=== PATIENT | male | born 1955 | race Caucasian/White ===

== ENCOUNTER 2017-04-29 22:53 | Inpatient (IN) | payer MEDICAID, OTHER ==
[~2017-04-29] VITALS: Ht 160 cm; Wt 52.3 kg
[2017-04-29] MEDS ORDERED: CITA10TA68 PO (23:06)
[2017-04-29] MEDS ORDERED: SIMV-259 PO (23:06)
[2017-04-29] MEDS ORDERED: ATEN25TA PO (23:06)
[2017-04-29 23:35] LABS: BASOPHILS % (AUTO) 0.9 % (0.0-2.0); EOSINOPHILS % (AUTO) 0.2 % (1.0-6.0); HEMATOCRIT 35.9 % (41-53); HEMOGLOBIN 12.6 g/dL (13.5-17.5); LYMPHOCYTES # (AUTO) 1.7 K/uL (1.0-4.8); LYMPHOCYTES % (AUTO) 27.2 % (22.0-44.0); MEAN CORPUSCULAR HEMOGLOBIN 34.7 pg (26.0-34.0); MEAN CORPUSCULAR HGB CONC 35.1 G/dL (31.0-37.0); MEAN CORPUSCULAR VOLUME 99 fL (80-100); MONOCYTES # (AUTO) 0.4 K/uL (0.1-1.0); MONOCYTES % (AUTO) 5.8 % (2.0-9.0); NEUTROPHILS # (AUTO) 4.1 K/uL (1.8-7.7); NEUTROPHILS % (AUTO) 65.9 % (40.0-70.0); RED BLOOD CELL COUNT(AUTO) 3.64 MIL/uL (4.50-5.90); RED CELL DISTRIBUTION WIDTH 13.1 % (11.5-14.5)
[2017-04-29 23:57] LABS: ALANINE AMINOTRANSFERASE 38 U/L (12-78); ALKALINE PHOSPHATASE 274 U/L (46-116); ANION GAP 13 mmol/L (8-16); ASPARTATE AMINOTRANSFERASE 78 U/L (15-37); BILIRUBIN,TOTAL 0.6 mg/dL (0.1-1.0); CALCIUM, TOTAL 8.6 mg/dL (8.8-10.5); CARBON DIOXIDE 25 mmol/L (22-29); CHLORIDE 102 mmol/L (98-107); CREATININE 0.78 mg/dL (0.60-1.30); GLOMERULAR FILTR. RATE CALC > 60 mL/min (>60); GLUCOSE,RANDOM 182 mg/dL (70-110); SODIUM SERUM 140 mmol/L (136-145); TOTAL PROTEIN, SERUM 7.4 g/dL (6.4-8.2); UREA NITROGEN, BLOOD 10 mg/dL (7-18)
[2017-04-30] VITALS (7 sets, daily range): BP systolic 113–140; BP diastolic 74–94
[2017-04-30 00:02] LABS: POTASSIUM 2.3 mmol/L (3.5-5.1)
[2017-04-30 00:05] LABS: PLATELET COUNT (AUTO) 80 K/uL (150-450)
[2017-04-30] MEDS ORDERED: POTASSIUM CHLORIDE 10% 40 MEQ/30 ML LIQUID UDCUP PO ONE (00:15)
[2017-04-30] MEDS ORDERED: HALOPERIDOL 5 MG TABLET PO PRN (02:00)
[2017-04-30] MEDS ORDERED: ZOLPIDEM TARTRATE 10 MG TABLET PO PRN (02:00)
[2017-04-30 04:19] LABS: AMPHET/METH SCREEN,URINE NEGATIVE (NEGATIVE); BARBITURATE SCREEN, URINE NEGATIVE (NEGATIVE); BENZODIAZEPINES SCREEN,URINE NEGATIVE (NEGATIVE); CANNABINOID SCREEN,URINE NEGATIVE (NEGATIVE); COCAINE SCREEN,URINE NEGATIVE (NEGATIVE); METHADONE SCREEN, URINE NEGATIVE (NEGATIVE); OPIATE SCREEN,URINE NEGATIVE (NEGATIVE); PHENCYCLIDINE SCREEN,URINE NEGATIVE (NEGATIVE)
[2017-04-30] MEDS ORDERED: POTASSIUM CHLORIDE 20 MEQ ER TABLET PO ONE ×2 (05:45→16:45)
[2017-04-30] MEDS: LORazepam 2 MG TABLET PO PRN ×4 (07:25→21:12)
[2017-04-30 08:39] LABS: ANION GAP 12 mmol/L (8-16); CALCIUM, TOTAL 8.2 mg/dL (8.8-10.5); CARBON DIOXIDE 25 mmol/L (22-29); CHLORIDE 104 mmol/L (98-107); CREATININE 0.64 mg/dL (0.60-1.30); GLOMERULAR FILTR. RATE CALC > 60 mL/min (>60); GLUCOSE,RANDOM 167 mg/dL (70-110); POTASSIUM 3.3 mmol/L (3.5-5.1); SODIUM SERUM 141 mmol/L (136-145); UREA NITROGEN, BLOOD 8 mg/dL (7-18)
[2017-04-30 08:44] LABS: ALANINE AMINOTRANSFERASE 40 U/L (12-78); ALBUMIN 2.6 g/dL (3.4-5.0); ALKALINE PHOSPHATASE 231 U/L (46-116); ASPARTATE AMINOTRANSFERASE 67 U/L (15-37); BILIRUBIN,TOTAL 0.6 mg/dL (0.1-1.0); TOTAL PROTEIN, SERUM 6.6 g/dL (6.4-8.2)
[2017-04-30] MEDS ORDERED: PNEUMOCOCCAL VACCINE POLYVALENT 0.5 ML VIAL [PPSV23] IM ONE (17:30)
[2017-04-30] MEDS ORDERED: LOPERAMIDE HCL 2 MG CAPSULE PO PRN (20:30)
[2017-04-30] MEDS ORDERED: HydrOXYzine PAMOATE 50 MG CAPSULE PO PRN (20:30)
[2017-04-30] MEDS ORDERED: GuaiFENesin/D-METHORPHAN [SUGAR-FREE] 200-20MG/10 ML SYRUP UDCUP PO PRN (20:30)
[2017-04-30] MEDS ORDERED: CYANOCOBALAMIN 1,000 MCG/ML VIAL IM ONE (20:30)
[2017-04-30] MEDS ORDERED: MIRTAZAPINE 15 MG TABLET PO SCH (21:00)
[2017-05-01] VITALS (8 sets, daily range): BP systolic 107–124; BP diastolic 68–86
[2017-05-01] MEDS: LORazepam 2 MG TABLET PO PRN (02:04)
[2017-05-01] MEDS ORDERED: LORazepam 2 MG TABLET PO PRN (07:00)
[2017-05-01] MEDS: THIAMINE HCL 100 MG TABLET PO SCH ×2 (08:47→16:59)
[2017-05-01] MEDS: MULTIVITAMINS WITH MINERALS, THERAPEUTIC TABLET PO SCH (08:48)
[2017-05-01] MEDS: LORazepam 2 MG TABLET PO SCH ×4 (08:48→21:01)
[2017-05-01] MEDS: FOLIC ACID 1 MG TABLET PO SCH (08:48)
[2017-05-01 08:56] LABS: HEMOGLOBIN A1C 7.9 % (4.5-6.2)
[2017-05-01 09:25] LABS: ALANINE AMINOTRANSFERASE 32 U/L (12-78); ALBUMIN 2.6 g/dL (3.4-5.0); ALKALINE PHOSPHATASE 194 U/L (46-116); ANION GAP 7 mmol/L (8-16); ASPARTATE AMINOTRANSFERASE 65 U/L (15-37); BILIRUBIN,TOTAL 1.2 mg/dL (0.1-1.0); CALCIUM, TOTAL 8.7 mg/dL (8.8-10.5); CARBON DIOXIDE 29 mmol/L (22-29); CHLORIDE 101 mmol/L (98-107); CHOL/HDL RATIO 2.3 (4.2-7.3); CHOLESTEROL 138 mg/dL (131-200); CREATININE 0.57 mg/dL (0.60-1.30); GLOMERULAR FILTR. RATE CALC > 60 mL/min (>60); GLUCOSE,RANDOM 145 mg/dL (70-110); HDL CHOLESTEROL 61 mg/dL (40-60); LDL CHOL (CALC.) 60 mg/dL (0-130); SODIUM SERUM 137 mmol/L (136-145); THYROID STIMULATING HORMONE 5.58 uIU/mL (0.36-3.74); TOTAL PROTEIN, SERUM 6.5 g/dL (6.4-8.2); TRIGLYCERIDES 85 mg/dL (15-150); UREA NITROGEN, BLOOD 7 mg/dL (7-18)
[2017-05-01 09:31] LABS: POTASSIUM 2.9 mmol/L (3.5-5.1)
[2017-05-01] MEDS ORDERED: POTASSIUM CHLORIDE 20 MEQ ER TABLET PO ONE (10:00)
[2017-05-01 12:06] LABS: VITAMIN D,TOTAL (25-0H) 9 ng/mL (30-100)
[2017-05-01 12:26] LABS: FOLATE SERUM 6.9 ng/mL (5.4-); VITAMIN B12 LEVEL > 2000 pg/mL (211-911)
[2017-05-01] MEDS: MIRTAZAPINE 30 MG TABLET PO SCH (21:01)
[2017-05-02 02:00] VITALS: BP 103/76
[2017-05-02 08:16] VITALS: BP 119/78
[2017-05-02] MEDS: THIAMINE HCL 100 MG TABLET PO SCH ×2 (08:31→16:06)
[2017-05-02] MEDS: LORazepam 2 MG TABLET PO SCH ×4 (08:31→20:08)
[2017-05-02] MEDS: FOLIC ACID 1 MG TABLET PO SCH (08:31)
[2017-05-02] MEDS: MULTIVITAMINS WITH MINERALS, THERAPEUTIC TABLET PO SCH (08:31)
[2017-05-02 10:05] VITALS: BP 119/78
[2017-05-02 16:31] VITALS: BP 147/92
[2017-05-02 17:23] LABS: GLUCOMETER DEV NAME(LOC) BV2N3; GLUCOSE,POINT OF CARE 370 MG/DL (70-110)
[2017-05-02 17:43] VITALS: BP 147/92
[2017-05-02] MEDS ORDERED: INSULIN ASPART 100 UNITS/ML SQ PRN (18:15)
[2017-05-02] MEDS ORDERED: GLUCAGON,HUMAN RECOMBINANT 1 MG VIAL IM PRN (18:15)
[2017-05-02] MEDS: MIRTAZAPINE 30 MG TABLET PO SCH (20:08)
[2017-05-02 20:51] VITALS: BP 121/84
[2017-05-03 06:22] LABS: GLUCOMETER DEV NAME(LOC) BV2N3; GLUCOSE,POINT OF CARE 246 MG/DL (70-110)
[2017-05-03 06:29] VITALS: BP 108/75
[2017-05-03] MEDS: MetFORMIN HCL 500 MG TABLET PO SCH ×2 (06:52→17:00)
[2017-05-03] MEDS ORDERED: LORazepam 1 MG TABLET PO PRN (07:00)
[2017-05-03 08:42] VITALS: BP 138/89
[2017-05-03] MEDS: THIAMINE HCL 100 MG TABLET PO SCH ×2 (08:47→17:00)
[2017-05-03] MEDS: FOLIC ACID 1 MG TABLET PO SCH (08:47)
[2017-05-03] MEDS: LORazepam 1 MG TABLET PO SCH ×3 (08:47→17:00)
[2017-05-03] MEDS: MULTIVITAMINS WITH MINERALS, THERAPEUTIC TABLET PO SCH (08:47)
[2017-05-03 11:05] VITALS: BP 138/89
[2017-05-03] MEDS: LISINOPRIL 10 MG TABLET PO SCH ×2 (13:28→17:00)
[2017-05-03] MEDS ORDERED: MIRT30 PO (20:10)
[2017-05-03] MEDS ORDERED: MV-M1TAB2 PO (20:10)
[2017-05-03] MEDS ORDERED: METF500T4 PO (20:10)
[2017-05-03] MEDS ORDERED: MULT-723 PO (20:13)
[2017-05-03] MEDS ORDERED: LISI-661 PO (20:13)
[2017-05-03] MEDS ORDERED: THIA100 PO (20:13)
[2017-05-04] MEDS ORDERED: LORazepam 1 MG TABLET PO PRN (07:00)
== END 2017-05-03 19:30 | disposition short-term general hospital (02) | DRG 751 ==
LOC: EMS 22:55 → B2S 04-30 13:01
PROVIDERS: ADMIT Psychiatry & Neurology Psychiatry; ATTEND Psychiatry & Neurology Psychiatry
DX: F33.2 Major depressive disorder, recurrent severe without psychotic features (principal); R45.851 Suicidal ideations; K74.60 Unspecified cirrhosis of liver; E11.9 Type 2 diabetes mellitus without complications; I10 Essential (primary) hypertension; D64.9 Anemia, unspecified; Z28.21 Immunization not carried out because of patient refusal; K75.9 Inflammatory liver disease, unspecified; E78.5 Hyperlipidemia, unspecified; F10.10 Alcohol abuse, uncomplicated
CPT/HCPCS: 80074; 82105; 82306; 82607; 82746; 82962; 83036; 84132; 84439; 84443; 90471; 99285; G0480; J3420